=== PATIENT | female | born 1970 | race Caucasian/White ===

== ENCOUNTER → 2017-06-20 | Outpatient (CLI) | payer OTHER ==
[2017-06-09 09:10] VITALS: BP 123/79
[~2017-06-20] MED LIST: BUPR150T11 PO; CELE200C PO; LISI1TAB7 PO; PANT40TA3 PO; TOPI50TA8 PO; TRAM50TA PO; ZOLP10TA4 PO; [UNRECOGNIZED DRUG - CODE] PO
--- NOTE | 2017-06-20 13:25 | RAD ---
Gastric emptying study 06/20/2017 Indication: Delayed gastric emptying. Recent endoscopy demonstrated presence of food from prior evening with the gastric lumen. Discussion: Imaging over the abdomen was performed following the oral administration of 2 mCi of technetium 99 labeled sulfur colloid in a solid meal. Gastric emptying was then measured over time. There is essentially no measurable gastric emptying over 1 hour time period. Gastric emptying half time is therefore not calculable. Impression: Significantly delayed gastric emptying without significant emptying of the stomach over 1 hour time period.
== END | disposition home or self-care (01) ==
LOC: NM 08:05
PROVIDERS: ATTEND Internal Medicine Gastroenterology
DX: K30 Functional dyspepsia (principal); I10 Essential (primary) hypertension
CPT/HCPCS: 78264; A9541